=== PATIENT | female | born 1990 | race African-American/Black ===

== ENCOUNTER 2024-08-16 12:09 | Emergency (ER) | payer MEDICAID, OTHER ==
[~2024-08-16] VITALS: Ht 165.1 cm; Wt 78.5 kg
[2024-08-16 13:05] VITALS: BP 122/90; PULSE 98; RESP 17; TEMP 98.1; O2SAT 98
[2024-08-16] MEDS ORDERED: AUG875T PO (13:49)
[2024-08-16] MEDS ORDERED: ACET-1080 PO (13:49)
== END 2024-08-16 13:50 | disposition home or self-care (01) ==
LOC: ER 12:09
DX: S02.2XXA Fracture of nasal bones, initial encounter for closed fracture (principal); S61.231A Puncture wound without foreign body of left index finger without damage to nail, initial encounter; Y04.1XXA Assault by human bite, initial encounter; Y93.89 Activity, other specified; Y92.89 Other specified places as the place of occurrence of the external cause; Y99.8 Other external cause status
CPT/HCPCS: 70160